=== PATIENT | male | born 1995 | race Caucasian/White ===

== ENCOUNTER 2018-02-14 14:30 | Emergency (ER) | payer MEDICAID, OTHER ==
[2018-02-14 14:42] VITALS: BP 124/84
--- NOTE | 2018-02-14 14:58 | UC ---
UC General HPI - HPI Summary HPI Summary: patient just got out of state [place] 5 days ago---[place]. patient reports increased anxiety and poor sleep---patient reports being on meds for behavior control from teenage years---patient reports being in multiple institutions and alf facilities. last time he took meds was 2015---patient is her for meds for anxiety/sleep. He was seen at mental health clinic today but could not get meds (as he did not see a prescriber ). - History of Current Complaint Chief Complaint: UCGeneralIllness Stated Complaint: ANXIETY Time Seen by Provider: 02/14/18 14:45 Hx Obtained From: Patient Onset/Duration: Gradual Onset, Still Present, Worse Since - past 5 days Timing: Constant Current Severity: Moderate Pain Intensity: 0 - Allergy/Home Medications Allergies/Adverse Reactions: Allergies Allergy/AdvReac Type Severity Reaction Status Date / Time No Known Allergies Allergy Verified 02/14/18 14:36 Home Medications: Home Medications NK [No Home Medications Reported] 02/14/18 [History Confirmed 02/14/18] PMH/Surg Hx/FS Hx/Imm Hx Previously Healthy: No Psychological History: Anxiety, Depression, Post Traumatic Stress Disorder - Surgical History Surgical History: None - Family History Known Family History: Positive: None - Social History Occupation: Unemployed Lives: [place] - [place] Alcohol Use: None Substance Use Type: None Smoking Status (MU): Never Smoked Tobacco Review of Systems Constitutional: Negative Skin: Negative Eyes: Negative ENT: Negative Respiratory: Negative Cardiovascular: Negative Gastrointestinal: Negative Genitourinary: Negative Motor: Negative Neurovascular: Negative Musculoskeletal: Negative Neurological: Negative Psychological: Anxious Is Patient Immunocompromised?: No All Other Systems Reviewed And Are Negative: Yes Physical Exam Triage Information Reviewed: Yes Appearance: Well-Appearing, No Pain Distress, Well-Nourished Vital Signs: Initial Vital Signs Temp 100.4 F 02/14/18 14:36 Pulse 96 02/14/18 14:36 Resp 20 02/14/18 14:36 BP 124/84 02/14/18 14:36 Pulse Ox 99 02/14/18 14:36 Vital Signs Reviewed: Yes Eye Exam: Normal Eyes: Positive: Conjunctiva Clear ENT Exam: Normal ENT: Positive: Normal ENT inspection, Hearing grossly normal. Negative: Trismus , Muffled voice, Hoarse voice Dental Exam: Normal Neck exam: Normal Neck: Positive: Supple, Nontender Respiratory Exam: Normal Respiratory: Positive: Chest non-tender, No respiratory distress, No accessory muscle use Cardiovascular Exam: Normal Cardiovascular: Positive: RRR, Pulses Normal, Brisk Capillary Refill Musculoskeletal Exam: Normal Musculoskeletal: Positive: Strength Intact, ROM Intact, No Edema Neurological Exam: Normal Neurological: Positive: Alert, Muscle Tone Normal Psychological Exam: Normal Skin Exam: Normal Re-Evaluation - Re-Evaluation First Eval Change: Unchanged - patient refuses--trzodone, vistaril or an SSRI stating he is scared of heavy psych drugs---he wants a BENZO----. Course/Dx - Course Course Of Treatment: patient walked out of treatment room - Differential Dx - Multi-Symptom Provider Diagnoses: anxiety Discharge - Sign-Out/Discharge Documenting (check all that apply): Patient Departure All imaging exams completed and their final reports reviewed: No Studies - Discharge Plan Condition: Fair Disposition: ELOPEMENT Referrals: No Primary Care Phys,NOPCP [Primary Care Provider] - - Billing Disposition and Condition Condition: FAIR Disposition: Elopement
== END 2018-02-14 15:29 | disposition home or self-care (01) ==
LOC: UCEAST 14:30
DX: R41.9 Unspecified symptoms and signs involving cognitive functions and awareness (principal)
CPT/HCPCS: 99202; G0463